=== PATIENT | male | born 1980 | race Caucasian/White ===

== ENCOUNTER 2017-01-05 11:13 | Emergency (ER) | payer BC ==
--- NOTE | 2017-01-05 11:21 | UC ---
Lower Extremity/Ankle HPI - HPI Summary HPI Summary: 36 YEAR OLD MALE PRESENTS WITH LEFT ANKLE PAIN WITHOUT ANY TRAUMA. - History of Current Complaint Stated Complaint: LEFT ANKLE PAIN Time Seen by Provider: 01/05/17 11:20 Hx Obtained From: Patient Hx From Patient Unobtainable Due To: Dementia Onset/Duration: Sudden Onset Severity Initially: Moderate Severity Currently: Moderate Pain Scale Used: 0-10 Numeric - 5 Aggravating Factor(s): Standing Alleviating Factor(s): Rest, Elevation - Risk Factors Gout Risk Factors: Negative DVT Risk Factors: Negative - Allergies/Home Medications Allergies/Adverse Reactions: Allergies Allergy/AdvReac Type Severity Reaction Status Date / Time No Known Allergies Allergy Verified 01/05/17 11:19 PMH/Surg Hx/FS Hx/Imm Hx Previously Healthy: Yes - Surgical History Surgical History: Yes Surgery Procedure, Year, and Place: knee 2000 - Family History Known Family History: Positive: None - Social History Alcohol Use: Daily Substance Use Type: None Review of Systems Constitutional: Negative Skin: Negative Eyes: Negative ENT: Negative Respiratory: Negative Cardiovascular: Negative Gastrointestinal: Negative Genitourinary: Negative Motor: Negative Neurovascular: Negative Musculoskeletal: Other: - LEFT ANKLE PAIN Neurological: Negative Psychological: Negative All Other Systems Reviewed And Are Negative: Yes Physical Exam Triage Information Reviewed: Yes Vital Signs Reviewed: Yes Eye Exam: Normal ENT Exam: Normal Dental Exam: Normal Neck exam: Normal Neck: Positive: 1 Respiratory Exam: Normal Cardiovascular Exam: Normal Abdominal Exam: Normal Musculoskeletal: Positive: Other: - LEFT ANKLE PAIN/SWELLING Neurological Exam: Normal Psychological Exam: Normal Skin Exam: Normal Lower Extremity Course/Dx - Differential Dx/Diagnosis Provider Diagnoses: LEFT ANKLE SWELLING/PAIN Discharge - Discharge Plan Condition: Stable Disposition: HOME Prescriptions: Methylprednisolone [Medrol Dosepak 4 MG*] 4 mg PO .SEE JIN INSTRUCTION #21 tab Patient Education Materials: Gout (ED) Referrals: Kirit Silva MD [Primary Care Provider] - If Needed
[2017-01-05 11:25] VITALS: BP 145/88
[2017-01-05] MEDS ORDERED: methylPREDNISolone 125 MG* 2 ML VIAL IM ONE (11:28)
== END 2017-01-05 12:42 | disposition home or self-care (01) ==
LOC: UCCORT 11:13
DX: M25.472 Effusion, left ankle (principal); M25.572 Pain in left ankle and joints of left foot
CPT/HCPCS: 96372; 99212; G0463; J2930